=== PATIENT | male | born 1985 | race Caucasian/White ===

== ENCOUNTER 2017-10-09 17:30 | Emergency (ER) | payer BC, OTHER ==
[~2017-10-09] VITALS: Ht 177.8 cm; Wt 90.7 kg
[2017-10-09 18:24] LABS: HEMATOCRIT 44.1 % (42.0-52.0); HEMOGLOBIN 15.3 gm/dL (14.0-18.0); MCHC 34.6 g/dL (28.0-37.0); MCV 89.4 fL (80.0-100.0); PLATELET COUNT 116 thou/uL (150-400); RBC 4.93 mil/uL (4.50-6.00); RDW 13.5 % (10.5-14.5); WBC 4.2 thou/uL (4.0-11.0)
[2017-10-09 18:37] LABS: CALCIUM 8.8 mg/dL (8.5-10.1); POTASSIUM 3.5 mmol/L (3.5-5.1)
[2017-10-09 18:49] LABS: ABSOLUTE NEUTROPHILS 2.9 thou/uL (1.4-8.2)
[2017-10-09] MEDS ORDERED: CLEOCIN HCL150 MG PO (18:49)
[2017-10-09 19:00] VITALS: BP 123/79
== END 2017-10-09 19:01 | disposition home or self-care (01) ==
LOC: ER 17:30
PROVIDERS: Physician Assistant
DX: L03.116 Cellulitis of left lower limb (principal); F17.210 Nicotine dependence, cigarettes, uncomplicated